=== PATIENT | male | born 2000 | race Caucasian/White ===

== ENCOUNTER 2019-01-24 22:37 | Outpatient (CLI) ==
[2019-01-24 18:41] VITALS: BMI 33.2
== END 2019-01-24 22:55 | disposition short-term general hospital (02) ==
LOC: AMBL 22:37
PROVIDERS: ATTEND Internal Medicine Geriatric Medicine
DX: R50.9 Fever, unspecified (principal); R11.10 Vomiting, unspecified; R52 Pain, unspecified

== ENCOUNTER 2019-02-03 16:04 | Outpatient (CLI) | END 2019-02-03 16:05 | disposition home or self-care (01) | LOC: RHC-LAB 16:04 → FCC-LAB 16:05 | PROVIDERS: ATTEND Family Medicine | DX: E87.6 Hypokalemia (principal); E83.51 Hypocalcemia | CPT/HCPCS: 36415; 80053; 85025 ==